=== PATIENT | female | born 1935 | race Caucasian/White ===

== ENCOUNTER 2018-03-01 09:31 | Inpatient (IN) ==
--- NOTE | 2018-03-01 09:20 | Anesthesia Evaluation PreOp ---
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: Other (spinal stenosis) Other Medical History: Denies Any Significant HX Anesthesia History: No Prior Anesthetic Complications, Past Anesthesia Alcohol Use: none Drug use: none Medications and Allergies Gabapentin [Neurontin] 300 mg PO 03/20/15 [History] Metoprolol XL (24 HR) Succ [Toprol XL] 25 mg PO DAILY 03/20/15 [History] Bone Meal-Vitamin D Tablet 01/28/17 [History] Glycerin [Sani-Supp] 1 each RC DAILY #30 supp.rect 01/28/17 [Rx] Meloxicam 01/28/17 [History] Omeprazole 01/28/17 [History] Ondansetron HCl [Zofran] 4 mg PO TID #15 tablet 01/28/17 [Rx] Reclast Premix 5 MG/100 ML 01/28/17 [History] Symbicort 160/4.5 01/28/17 [History] Tramadol HCl [Ultram] 50 mg PO TID PRN #15 tab 01/28/17 [Rx] metroNIDAZOLE [Flagyl] 500 mg PO BID #20 tablet 01/28/17 [Rx] Aspirin Enteric Coated [Aspirin EC] 162 mg PO BID #20 tablet. 03/01/18 [Rx] OxyCODONE Immed Rel [Roxicodone 5 MG] 5 mg PO Q4HR PRN 5 Days #20 tablet [Rx] 3 Allergy/AdvReac Type Severity Reaction Status Date / Time latex Allergy Hives Verified 02/15/18 10:33 - Meds/Allergy Pre-op Review Medications Reviewed: Yes Allergies Reviewed: Yes Beta Blockers on Current Med List: Yes If Beta Blockers taken, Date/Time (Last Dose taken): 03/01/2018 at 0800 Anesthesia Results - Labs Laboratory Tests 02/15/18 02/15/18 02/15/18 10:45 10:45 10:45 WBC 4.8 Hgb 13.8 Hct 40.9 Plt Count 224 PT 10.7 INR 1.0 APTT 32.1 Sodium 138 Potassium 3.8 BUN 22 Creatinine 0.48 L - Imaging EKG: report reviewed (02/15/2018 SINUS RHYTHM POSSIBLE LEFT ATRIAL ENLARGEMENT POSSIBLE LEFT VENTRICULAR HYPERTROPHY POSSIBLE ANTEROSEPTAL MYOCARDIAL INFARCTION, OF INDETERMINATE AGE Left axis deviation) Additional studies: 11/25/2016 Stress Impression: Pharmacologic stress ECG is non diagnostic for ischemia due to baseline non-specific ST and T changes. Gated EF = 64%. Small sized, mild intensity, fixed apical inferior defect suggestive of artifact. Perfusion imaging was negative for ischemia or infarct. Findings: Stress Note * Resting ECG demonstrated normal sinus rhythm, likely LVH, ST-T changes. * No baseline arrhythmias were noted. * Pharmacologic stress ECG is non diagnostic for ischemia due to baseline non-specific ST and T changes. * No arrhythmias were noted during stress. * Patient had no chest pain during stress. * Normal hemodynamic responses to pharmacologic stress. Study Quality * Study quality is average. Gated EF % * Gated EF = 64%. Left Ventricle * The left ventricle is not dilated. LVEDV = 94 mL. * Normal wall motion. Inferior Perfusion Rest * The apical inferior segment shows a mild reduction in perfusion. Inferior Perfusion Stress * The apical inferior segment shows a mild reduction in perfusion. TID * No evidence of transient ischemic dilatation. TID ratio = 1.27. Lung Uptake * There is no evidence of increase lung uptake. Anesthesia Exam O2 Sat Height 1.55 m Height 1.55 m Height 1.55 m Weight 53.524 kg Weight 53.524 kg Weight 53.524 kg O2 Sat by Pulse Oximetry 94 O2 Sat by Pulse Oximetry 94 Vital Signs Temp Pulse Resp BP Pulse Ox 98.3 F 99 18 188/99 94 03/01/18 09:51 03/01/18 09:51 03/01/18 09:51 03/01/18 09:51 03/01/18 09:51 Height: 5'1'' Weight: 118 lbs NPO (# of Hours): 8 Pain Scale: 0 Pain Scale Used: Numeric (1 - 10) - HEENT Pupil (Motor): EOMI Mallampati: II Teeth: Edentulous Denture Type: Upper: Complete, Lower: Complete Oral Opening: Greater than 3 - TYPING ELEMENT MACHINE OPERATOR LOC: Oriented TYPING ELEMENT MACHINE OPERATOR Motor: Normal RUE, Normal LUE, Normal RLE, Normal LLE, Normal Face TYPING ELEMENT MACHINE OPERATOR Sensory: Normal: RUE, LUE, RLE, LLE, Face - Cardiac Rhythm: Regular Murmur: None - Pulmonary Breath Sounds: bilateral Clear Respiratory Effort: Symmetrical Anesthesia Assess/Plan ASA Score: 2 Modified Toney Scale for Level of Consciousness: Cooperative, oriented, and tranquil Anesthetic Plan: General, Regional Monitoring Plan: Standard Monitors Recovery Plan: PACU
[2018-03-01] MEDS ORDERED: ROPIVACAINE HCL/PF 0.5% 30 ML VIAL ONE (09:36)
[2018-03-01] MEDS ORDERED: Bupivacaine/Clonidine Syringe 1 EACH SYRINGE ONE (09:37)
--- NOTE | 2018-03-01 09:42 | History & Physical Report ---
Date of Encounter: 03/01/18 Time of Encounter: 09:42 24 Hour HP Update - Instructions Instructions: If the History and Physical is less than 30 days old and was completed prior to A.M. admission and or procedure and has NOT been updated on calendar day of procedure please complete this update prior to performing procedure. - Update Patient reports changes in Medical Condition: No Changes in examination, assessment, or condition: No Changes in Medication: No Preop tests/diagnostics Reviewed: Yes Surgery Remains Indicated: Yes Consent for Planned Operative Procedure(s) Verified: Yes - Pre-Operative Checklist Preoperative Checklist Indicated: No Prophylactic Antibiotic Ordered: Yes Is VTE Prophylaxis Indicated?: Yes
--- NOTE | 2018-03-01 09:43 | Discharge Summary ---
Date of Encounter: 03/03/18 Time of Encounter: 07:50 - Discharge Diagnosis (1) Arthritis of right knee Priority: Primary Status: Chronic (2) Status post total right knee replacement Priority: Primary Status: Acute - Hospital Course Hospital course: Ms. Mckeon is a 83 year old female Status post total knee replacement received 1 unit of blood for acute blood loss anemiaThe patient had an uneventful postoperative course. They received antibiotics and physical therapy and were discharged in stable condition. There will follow-up in the office in 2 weeks. - Time Spent with Patient Total time spent providing and/or coordinating discharge services: - Discharge Medications Home Medications: Budesonide/Formoterol 160/4.5 [Symbicort 160/4.5] 2 puff IH BID 03/01/18 [ History] Cholecalciferol (D-3) [Vitamin D] 2,000 unit PO DAILY 03/01/18 [History] Cyanocobalamin (Vitamin B-12) [B-12] 1,000 mcg PO MOWEFR 03/01/18 [History] Furosemide [Lasix] 20 mg PO 03/01/18 [History] Gabapentin [Neurontin] 300 mg PO HS 03/01/18 [History] Levothyroxine [Synthroid] 100 mcg PO 0630 03/01/18 [History] Losartan Potassium [Cozaar] 100 mg PO 03/01/18 [History] Meloxicam 7.5 mg PO BID 03/01/18 [History] Metoprolol Succinate [Toprol Xl] 25 mg PO DAILY 03/01/18 [History] Olopatadine HCl [Pataday] 1 drop BOTH EYES DAILY 03/01/18 [History] Allergies/Adverse Reactions: 3 Allergy/AdvReac Type Severity Reaction Status Date / Time latex Allergy Hives Verified 02/15/18 10:33 Primary care physician: Tammie Cole DO - Patient Status Disposition: Transfer Inpatient Rehab Fac Condition: Good Functional capacity at discharge: uses cane/walker Overall status at discharge: patient is progressing back to baseline - Discharge Instructions Follow Up With: Tammie Cole DO [Primary Care Provider] -
[2018-03-01] MEDS ORDERED: *HR* FentaNYL (PF) 100 MCG/2 ML VIAL ONE (09:49)
[2018-03-01] MEDS ORDERED: CeFAZolin Syr 2,000MG/20 ML 2,000 MG/20 ML SYRINGE IVPB ONE (09:51)
[2018-03-01] MEDS ORDERED: Ringers Solution, Lactated 1,000 ML IVC SCH ×2 (10:00→14:26)
[2018-03-01] MEDS ORDERED: Dexamethasone 4 MG/ML VIAL ONE (10:20)
[2018-03-01] MEDS ORDERED: Ondansetron 4 MG/2 ML VIAL ONE (10:20)
[2018-03-01] MEDS ORDERED: Lidocaine -MPF 2% 2 ML VIAL ONE (10:20)
[2018-03-01] MEDS ORDERED: Dexamethasone 4 MG/ML VIAL IVP ONE (10:32)
[2018-03-01] MEDS ORDERED: Ondansetron 4 MG/2 ML VIAL IVP ONE (10:32)
--- NOTE | 2018-03-01 10:56 | Anesthesia Procedures ---
Date of Encounter: 03/01/18 Time of Encounter: 10:45 Procedures: Anesthesia - Nerve Block Procedure Date: 03/01/18 Time: 10:45 Allergies/Adv Reactions: LATEX Pre-op Diagnosis: RIGHT KNEE ARTHROPLASTY Surgical Procedure: RIGHT KNEE ARTHRITIS Checklist: Correct Patient Identifier, Correct procedure, History checked Correct side: Right Blood Thinner: No Monitor Applied: EKG, BP, Pulse Oximetry Supplemental Oxygen via Nasal Cannula (L/min): 2 Sedation: Fentanyl (mcg): 100 Indication: Post Op Analgesia Pre-op Neuro Deficits: No Block Type: Femoral (IPACK ) Catheter placed: No Sterile Technique: Yes Ultrasound used: Yes Anatomy identified: Yes Visual spread of Local: Yes Neuro Stimulation: Yes Nerve Stimulator Range: 0.2 - 0.4 mA Blood on Needle Aspiration: No Smooth Injection of Local: Yes Pain with Injection of Local: No Prep: Chlorhexadine Needle: 21 x 100 mm Stimuplex Local: 0.25% Bupivicaine w/Clonidine 20 mcg/cc (IPACK ), Ropivacaine (8MG DECADRON ) Volume (cc): 60 Number of Attempts: 1 Complications: None/effective block Vitals: Vital Signs - Last 8 Hours Temp Pulse Resp BP Pulse Ox 03/01/18 10:02 98.3 F 99 18 188/99 94 03/01/18 09:51 98.3 F 99 18 188/99 94 Intake and Output 02/28/18 03/01/18 03/01/18 23:59 07:59 15:59 Other: Weight 53.524 kg Patient Weight 03/01/18 23:59 Weight 53.524 kg Comments: PER DR. VEGA REQUEST VSS
[2018-03-01] MEDS ORDERED: Ethanol\\Acetic Acid\\Na Ace\\Ben 1,000 ML IRRIG.SOLN IR ONE (11:27)
[2018-03-01] MEDS ORDERED: *HR* PHENYLEPHRINE 1,000 MCG/10 ML SYRINGE IVP ONE (12:02)
[2018-03-01] MEDS ORDERED: *HR* Morphine 10 MG/ML VIAL ONE (12:16)
--- NOTE | 2018-03-01 13:02 | Physician Discharge Referral ---
<Kyara Chery - Last Filed: 03/01/18 13:11> ExtendedCare Referral Info Transfer To: [facility] Provider in Charge: Dr. Gates - Diagnosis (1) Status post total right knee replacement Priority: Primary Status: Acute (2) Arthritis of right knee Priority: Secondary Status: Chronic (3) Essential (primary) hypertension Priority: Secondary Status: Chronic Expected Duration of Placement: <30 days Prognosis: Good Aware of Diagnosis: Patient Aware of Prognosis: Patient - Transfer Medications Home Medications: Budesonide/Formoterol 160/4.5 [Symbicort 160/4.5] 2 puff IH BID 03/01/18 [ History] Cholecalciferol (D-3) [Vitamin D] 2,000 unit PO DAILY 03/01/18 [History] Cyanocobalamin (Vitamin B-12) [B-12] 1,000 mcg PO MOWEFR 03/01/18 [History] Furosemide [Lasix] 20 mg PO 03/01/18 [History] Gabapentin [Neurontin] 300 mg PO HS 03/01/18 [History] Levothyroxine [Synthroid] 100 mcg PO 0630 03/01/18 [History] Losartan Potassium [Cozaar] 100 mg PO 03/01/18 [History] Meloxicam 7.5 mg PO BID 03/01/18 [History] Metoprolol Succinate [Toprol Xl] 25 mg PO DAILY 03/01/18 [History] Olopatadine HCl [Pataday] 1 drop BOTH EYES DAILY 03/01/18 [History] Allergies/Adverse Reactions: 3 Allergy/AdvReac Type Severity Reaction Status Date / Time latex Allergy Hives Verified 02/15/18 10:33 - Respiratory Orders Smoking Cessation: Smoking cessation has been advised. For more information, call the [place] Tobacco Quit Line at 3-901-IPTS-NOW. - Ancillary Orders May use pressure relief devices daily prn, May go on LINDY w/family/respon alliance party w /meds at nurse discretion PRN, May consult with Dentist, Robotics Testing Technician, Freelance Court Reporter PRN - Mobility Orders Chair, Ambulate - Rehabiliation Orders Rehab Potential: Good Rehab Orders: Evaluation for Physical Therapy, Evaluation for Occupational Therapy - Treatments Skin tear care topically daily PRN per policy List/Other: Opsite dressing, leave intact until first post-operative visit. If dressing becomes >50% saturated, contact office, remove dressing and place appropriate dressing in its place. Do not allow for dressing to get wet. Zipline/[place] in place, plan to remove at post-operative day #14-16. Total Joint Precautions x 6 weeks Apply cold therapy wrap 3-6x/day for 20 minutes at a time. Encourage ambulation throughout the day Use Incentive spirometer 10x/hour. Elevate affected extremity above heart as tolerated. Brace: Wear knee immobilizer at night x 2 weeks.~ - Diet Orders Regular CERTIFICATION: I certify that the transfer of the above named patient to an Extended Care Facility is necessary for the continuing treatment of the diagnosis listed. The above information is true and accurate reflection of patient's current condition. Confidential - Redisclosure prohibited without a patient's written consent. <Lino Gates - Last Filed: 03/02/18 06:42> - Diagnosis (1) Arthritis of right knee Status: Chronic (2) Status post total right knee replacement Status: Acute - Respiratory Orders Smoking Cessation: Smoking cessation has been advised. For more information, call the [place] Tobacco Quit Line at 9-270-GPDL-NOW. CERTIFICATION: I certify that the transfer of the above named patient to an Extended Care Facility is necessary for the continuing treatment of the diagnosis listed. The above information is true and accurate reflection of patient's current condition. Confidential - Redisclosure prohibited without a patient's written consent.
--- NOTE | 2018-03-01 13:03 | Orthopedic Operative Note ---
Date of procedure: 03/01/18 Pre-op diagnosis: Right knee arthritis Post-op diagnosis: same Procedure: Procedure: Right robotic-assisted Total knee replacement Estimated blood loss: 500 cc Hardware: Metal and polyethylene replacement. [place] Femur: 3 Tibia: 3 TS insert: 9 Patella: 36 Exam Under anesthesia: 7 degrees hyperextension 4 degree valgus as calculated by the robot full flexion and no instability Procedural Notes: Grade 4 arthritic changes all 3 compartments. Operative procedure: The patient was brought to the operating room and placed on the operating room table. After general anesthesia was administered the operative knee was examined. Findings were noted in the exam under anesthesia. The operative extremity was prepped and draped in sterile surgical fashion. The patient received IV antibiotics prior to skin incision. A standard midline incision was made centered over the patella. The incision was made through the skin and subcutaneous tissue. A medial parapatellar tendon approach was performed. Care was taken to preserve tissue along the medial aspect of the patella. And to protect the patella tendon. The deep MCL was released off the medial tibia. The infra patella fat pad was excised. The patella was everted and cut was made at the level of the insertion of the quadriceps and patella tendon. The patella was sized to a 36 the guide was seated and the lug holes are drilled. Knee was brought into flexion. Patient noted to have grade 4 arthritic changes all 3 compartments. Steinmann pins were placed in the tibia and the femur for the tibial and femoral arrays respectively. Checkpoints were also placed in the tibia and the femur for calculation purposes. The knee including the femur and the tibial registered. Osteophytes, ACL and PCL were excised at this point. Extension and flexion were assessed with a valgus stress components were adjusted on the computer to balance the knee. Femoral cuts were made first with robotic assistance, these included the anterior cut posterior cuts chamfer cuts. Tibial cut was then performed with robotic assistance as well. Bone fragments were removed, as well as the medial and lateral meniscus. The size 3 femoral guide was seated box cut was made lug holes are drilled. The size 3 tibial tray was seated and prepared with the fin cutter. Trial reduction with the 9 TS Aleta revealed extension of 0 degree and 0 degrees varus valgus full flexion. No varus valgus instability. Trial reduction revealed excellent patella tracking. All trial components were removed all bony surfaces were irrigated. The Tibia was seated followed by the femur, The Aleta size 9 was seated and secured patella. Patient had similar findings for motion and stability. The knee was then irrigated out with 2 L of pulse irrigation. The extensor mechanism was closed with #2 FiberWire suture and #2 PDS suture. The subcutaneous tissue was then irrigated and closed deep with #1 PDS suture superficially with 0 PDS suture and skin was closed with skin marcell and zip tie The patient was then placed in a sterile dressing and a postoperative brace extubated and transferred to recovery room in stable condition. Anesthesia: GETA Surgeon: Lino Gates Was there an personal care assistant present: No Estimated blood loss (cc): 500 Condition: stable Disposition: PACU
[2018-03-01] MEDS: *HR* Morphine 2 MG/ML SYRINGE IVP PRN ×3 (13:19→13:48)
[2018-03-01] MEDS: *HR* Labetalol 20 MG/4 ML SYRINGE IVP PRN ×2 (13:20→13:47)
--- NOTE | 2018-03-01 14:05 | Anesthesia Evaluation Post Op ---
Date of Encounter: 03/01/18 Time of Encounter: 14:05 - Vital Signs Vital Signs: Selected Entries 03/01/18 13:42 03/01/18 13:52 Temperature 97.4 F L Pulse Rate 69 Respiratory Rate 16 Blood Pressure 149/74 O2 Sat by Pulse Oximetry 95 - Lungs Lungs: Clear Ascult./Percussion - Airway Airway: Non-obstructed - Cardiovascular Regular Rate - Nausea Vomiting Nausea Vomiting: Not Present - Hydration Hydration: Tolerates oral liquids - Discharge PostOp Status: Transfer Patient to floor
[2018-03-01 14:22] LABS: Hematocrit 35.6 % (35.3-44.9)
[2018-03-01] MEDS ORDERED: Sennosides 8.6 MG TABLET PO PRN (14:26)
[2018-03-01] MEDS ORDERED: traMADol 50 MG TABLET PO PRN (14:26)
[2018-03-01] MEDS ORDERED: Ondansetron 4 MG/2 ML VIAL IVP PRN (14:26)
[2018-03-01] MEDS ORDERED: Temazepam 15 MG CAPSULE PO PRN (14:26)
[2018-03-01] MEDS ORDERED: MOM Conc 10 ML UD.LIQ PO PRN (14:26)
[2018-03-01] MEDS ORDERED: Naloxone 0.4 MG/ML INJ IVP PRN (14:26)
[2018-03-01] MEDS: *HR* OxyCODONE Immed Rel 5 MG TABLET PO PRN (15:10)
[2018-03-01] MEDS: *HR* OxyCODONE/APAP 5/325 TABLET PO PRN (18:05)
[2018-03-01] MEDS ORDERED: Aspirin Enteric Coated 81 MG Tablet PO SCH (18:44)
[2018-03-01] MEDS: Gabapentin 300 MG CAPSULE PO SCH (19:59)
[2018-03-01] MEDS: Budesonide/Formoterol 160/4.5 MDI IH SCH (20:47)
[2018-03-02 01:50] LABS: Hematocrit 27.2 % (35.3-44.9)
[2018-03-02 02:11] LABS: BUN/Creatinine Ratio 54 (6-26); Blood Urea Nitrogen 27 mg/dL (8-23); Calcium 8.5 mg/dL (8.6-10.3); Carbon Dioxide 30 mEq/L (23-29); Chloride 98 mEq/L (98-107); Glucose 157 mg/dL (70-105); Osmolality,Calculated 284 (280-300); Potassium 4.6 mEq/L (3.5-5.1); Sodium 133 mEq/L (136-145); eGFR For Non-African Americans > 60 (> 60)
--- NOTE | 2018-03-02 06:43 | Orthopedics Progress Note ---
Date of Encounter: 03/02/18 Time of Encounter: 06:42 - Assessment and Plan (1) Arthritis of right knee Current Visit: Yes Status: Chronic (2) Status post total right knee replacement Current Visit: Yes Status: Acute (3) Acute blood loss anemia Current Visit: Yes Status: Acute (4) Essential (primary) hypertension Current Visit: Yes Status: Chronic Subjective Interval history: Patient was seen this morning doing well without complaints. Afebrile vital signs stable. Operative extremity: Neurovascularly intact Dressing clean dry and intact Calves nontender Assessment and plan: Continue with postoperative care Hematocrit 27 awaiting placement for discharge Objective Vital signs: Vital Signs Temp Pulse Resp BP Pulse Ox 03/02/18 04:04 98.6 F 54 14 124/65 95 03/01/18 23:39 97.4 F L 51 14 120/52 96 03/01/18 20:47 16 94 03/01/18 20:44 97.7 F 54 15 121/54 98 03/01/18 19:35 97.5 F L 49 14 135/63 97 03/01/18 19:33 97.5 F L 58 16 124/60 95 03/01/18 18:00 54 16 104/52 95 03/01/18 17:00 50 16 112/61 97 03/01/18 16:14 97.8 F 53 16 92/54 94 03/01/18 15:35 56 16 125/66 92 03/01/18 15:12 75 16 125/66 93 03/01/18 15:03 93 03/01/18 14:48 95 03/01/18 14:35 97.7 F 78 16 136/77 92 03/01/18 14:02 59 12 153/79 94 03/01/18 13:52 69 16 149/74 95 03/01/18 13:42 97.4 F L 63 16 172/92 93 03/01/18 13:32 72 18 165/95 93 03/01/18 13:22 82 16 157/83 96 03/01/18 13:12 98 F 90 16 185/104 96 03/01/18 10:02 98.3 F 99 18 188/99 94 03/01/18 09:51 98.3 F 99 18 188/99 94 Intake and Output 08/16/18 08/16/18 08/17/18 15:59 23:59 07:59 Intake Total 20 / 20 440 / 440 50 / 50 Output Total 500 / 500 550 / 550 Balance -480 / -480 -110 / -110 50 / 50 Intake: IV Fluids 20 / 20 100 / 100 Ancef Syringe 2,000 MG/20 ML 2, 20 / 20 000 mg In 20 ml @ 200 mls/hr IVPB PREOP ONE Rx#:[id number] Ancef 2,000 MG In 0.9 % Sodium 100 / 100 Chloride 100 ML @ 200 mls/hr IVPB Q8H [facility] Rx#:[id number] Oral 340 / 340 50 / 50 Output: Urine 550 / 550 Estimated Blood Loss 500 / 500 Other: Meal Dinner # Voids 1 1 Weight 53.524 kg - Labs CBC & BMP: 03/02/18 01:06 03/02/18 01:06 Labs: Abnormal lab results Hgb 9.0 g/dL (11.5-15.4) L D 03/02/18 01:06 Hct 27.2 % (35.3-44.9) L 03/02/18 01:06 Sodium 133 mEq/L (136-145) L 03/02/18 01:06 Carbon Dioxide 30 mEq/L (23-29) H 03/02/18 01:06 BUN 27 mg/dL (8-23) H 03/02/18 01:06 Creatinine 0.50 mg/dL (0.60-1.20) L 03/02/18 01:06 BUN/Creatinine Ratio 54 (6-26) H 03/02/18 01:06 Glucose 157 mg/dL (70-105) H 03/02/18 01:06 Calcium 8.5 mg/dL (8.6-10.3) L 03/02/18 01:06 - VTE Documentation of Mechanical Device: Venous foot pump, device Consult Discharge Plan - Plan Referrals: Tammie Cole DO [Primary Care Provider] -
[2018-03-02] MEDS: Budesonide/Formoterol 160/4.5 MDI IH SCH ×2 (08:01→21:51)
[2018-03-02] MEDS: Metoprolol XL (24 HR) Succ 25 MG TAB.ER.24H PO SCH (08:52)
[2018-03-02] MEDS: Aspirin Enteric Coated 81 MG Tablet PO SCH (08:52)
[2018-03-02] MEDS: Cholecalciferol (D-3) 1,000 UNIT TABLET PO SCH (08:52)
[2018-03-02] MEDS: (Olopatadine Hcl [Pataday] 1 DROP) OP SCH (09:18)
[2018-03-02] MEDS ORDERED: Cyanocobalamin (B-12) 1,000 MCG TABLET PO SCH (11:39)
--- NOTE | 2018-03-02 13:33 | Event Note ---
Date of Encounter: 03/02/18 Time of Encounter: 12:20 PCR - POD#1 s/p Right robotic-assisted Total knee replacement 03/01/18 Patient seen at bedside, without complaints. A&O x 3 Afebrile, vital signs stable. Labs reviewed. H/H (9.0/27.2) - stable, asymptomatic Pain control: adequate Participating in PT. All questions and concerns addressed. Educated on use of incentive spirometer. Encouraged ambulation and proper hydration. Patient educated on post-operative restrictions and post-operative care. Assessment and plan: Continue with postoperative care. Nursing did note crackles to right lower lobe today. CXR showed opacity to this area with possible pneumonia. Consult placed to hospitalist for further evaluation. She currently has no c/o SOB, O2sat 95% and she is stable and comfortable. She is not on any oxygen at home. Discharge plan: [facility] - [facility] in [place] pending placement
--- NOTE | 2018-03-02 14:28 | Internal Medicine Consult Note ---
<Nel Bright L - Last Filed: 03/02/18 16:45> Date of Encounter: 03/02/18 Time of Encounter: 14:26 - Assessment and plan (1) Pneumonia Current Visit: Yes Status: Suspected Assessment and plan: - crackles heard in right lower lung base and CXR shows opacification in same area with a possible pneumonia noted - patient was intubated for knee arthroplasty yesterday and crackles were noted on exam this morning - prior to surgery respiratory exam was CTA b/l - patient was NPO for 8 hours prior to surgery - Will order CBC to check for WBC count, as well as strep and legionella urine antigens and blood and sputum cultures - recommend beginning rocephin and azithromycin empirically prior to test results (2) Status post total right knee replacement Current Visit: Yes Status: Acute Assessment and plan: management as per orthopedic team - Time Spent With Patient Total time spent is greater than 50% in coordination of care (as documented) at patient's floor/unit and/or counseling patient: Internal Medicine - CN: HPI - Data of Consult Consult date: 03/02/18 Requesting Physician: Lino Gates MD - Consult Narrative Reason for consult: Evaluation for possible PNA History of present illness: Ms. Mckeon is a 83 year old female who presents with mild crackles in the right lung base. She underwent a right total knee arthroplasty 03/01 with no surgery complications noted. Nursing noted coarse crackles in the posterior right lower lobe in the morning of 03/02. A CXR was completed and noted right lower lobe opacification with increased interstitial markings diffusely, indicative of a possible PNA. Patient was NPO for 8 hours prior to surgery and pre-surgery exam she was CTA b/l. Patient denies any current SOB, coughing, sputum production, angina, dyspnea, dysphagia, hemoptysis, vomiting or diarrhea , or hematuria. She admits to a slight cough and shortness of breath on exertion 2-3 days prior to admission for the knee surgery. She says she brought up some yellow tinged sputum 2 days before the surgery, which she says was the same as the last time she was diagnosed with bronchitis, but says she has not brought up anything since being in the hospital. She denies any dyspnea, difficulty swallowing, or angina prior to surgery. She is currently afebrile, in no pain and has no acute complaints. Past Med Surg Social Fam HX - Past Medical History Medical history: arthritis, asthma, diabetes, hypertension, osteoporosis, thyroid disease Additional medical history: Osteopenia. Spinal stenosis. DEXA-2011 & 2013. bilateral mastectomy d/t fibroid tumors and needing them drained so frequently. Vit D def. Cyst of left kidney. renal cyst. pre-diabetic. Actinic keratosis. Dermatophyosis of nail. Scoliosis of lumbar spine. Colon adenoma. diverticulosis of colon. Hyperparathyroidism. hypothyroidism. Osteoarthritis. Ostreporosis. lumbarspinal stenosis. lichen simplex chronicus. Redd's cyst of knee. Degenerative arthritis. scoliosis. lower left extremity pain. colon polyps. soliz esophagus Psychiatric history: no psych history - Past Surgical History Surgical History: hip replacement, hysterectomy, orthopedic, other (left should arthroplasty), thyroidectomy Additional surgical history: bilateral mastectomy - Social History Smoking Status: Never smoker Smokeless Tobacco Status: No Alcohol use: none Drug use: none - Constitutional Constitutional: as per HPI - EENT Nose, mouth and throat: no dysphagia, no hoarseness, no sore throat - Cardiovascular Cardiovascular ROS IM: no chest pain, no dyspnea - Respiratory Respiratory: as per HPI Additional comments: 1 incidence of yellow sputum production 2 days prior to surgery - Gastrointestinal Gastrointestinal: as per HPI - Genitourinary Genitourinary: as per HPI Internal Medicine - CN: Meds Budesonide/Formoterol 160/4.5 [Symbicort 160/4.5] 2 puff IH BID 03/01/18 [ History] Cholecalciferol (D-3) [Vitamin D] 2,000 unit PO DAILY 03/01/18 [History] Cyanocobalamin (Vitamin B-12) [B-12] 1,000 mcg PO MOWEFR 03/01/18 [History] Furosemide [Lasix] 20 mg PO 03/01/18 [History] Gabapentin [Neurontin] 300 mg PO HS 03/01/18 [History] Levothyroxine [Synthroid] 100 mcg PO 0630 03/01/18 [History] Losartan Potassium [Cozaar] 100 mg PO 03/01/18 [History] Meloxicam 7.5 mg PO BID 03/01/18 [History] Metoprolol Succinate [Toprol Xl] 25 mg PO DAILY 03/01/18 [History] Olopatadine HCl [Pataday] 1 drop BOTH EYES DAILY 03/01/18 [History] 3 Allergy/AdvReac Type Severity Reaction Status Date / Time latex Allergy Hives Verified 02/15/18 10:33 Internal Medicine - CN: Exam - Constitutional Vitals: Temp Pulse Resp BP Pulse Ox 98.5 F 74 16 126/58 95 03/02/18 09:45 03/02/18 09:45 03/02/18 09:45 03/02/18 09:45 03/02/18 09:45 General appearance IM: Present: A&O X 3, pleasant, no acute distress, answers questions appropriately - ENT ENT exam: Present: mucous membranes moist, normal oropharynx - Respiratory Respiratory exam: Absent: chest wall tenderness, wheezes Additional comments: mild crackles in right lower lung base - Cardiovascular Cardiovascular exam IM: Present: RRR, +S1, +S2. Absent: JVD - GI/Abdominal GI/Abdominal exam IM: Present: soft. Absent: guarding, tenderness - Extremities Exam Extremities exam IM: Present: radial pulses palpable and symmetrical. Absent: calf tenderness - Expanded Upper Extremities Exam Shoulder exam: Present: crepitus (right shoulder crepitus) Internal Medicine - CN: Reslt - Labs CBC & Chem 7: 03/02/18 01:06 03/02/18 01:06 Labs: Short CBC 03/02/18 Range/Units 01:06 Hgb 9.0 L D (11.5-15.4) g/dL Hct 27.2 L (35.3-44.9) % BMP 03/02/18 01:06 Sodium 133 L Potassium 4.6 Chloride 98 Carbon Dioxide 30 H BUN 27 H Creatinine 0.50 L Glucose 157 H Calcium 8.5 L - Impressions Impressions Knee X-Ray 03/01/18 09:44 IMPRESSION: Total knee arthropasty without acute hardware complication. D/ / William Sue MD / William Sue MD Interpreting Provider: Wliliam Sue MD Chest X-Ray 03/02/18 10:50 IMPRESSION: Right lower lobe opacification could represent pneumonia. Otherwise, stable chest D/ / William Sue MD / William Sue MD Interpreting Provider: William Sue MD Consult Discharge Plan - Plan Referrals: Tammie Cole DO [Primary Care Provider] - <Marcin Smyth - Last Filed: 03/02/18 17:44> Date of Encounter: 03/02/18 - Assessment and plan (1) Pneumonia Current Visit: Yes Status: Suspected Qualifiers: Pneumonia type: due to Pneumococcus Laterality: right Lung location: lower lobe of lung Qualified Code(s): J13 - Pneumonia due to Streptococcus pneumoniae (2) Essential (primary) hypertension Current Visit: Yes Status: Chronic (3) Status post total right knee replacement Current Visit: Yes Status: Acute - Time Spent With Patient Total time spent is greater than 50% in coordination of care (as documented) at patient's floor/unit and/or counseling patient: Internal Medicine - CN: HPI - Data of Consult Patient: new to practice Requesting Physician: Lino Gates MD - Consult Narrative History of present illness: Ms. Mckeon is a 83 year old female Past Med Surg Social Fam HX - Past Medical History Source: patient, old records reviewed - Family History Mother Living Status: Hx Family Cardiac Disorders: Yes All systems: reviewed and no additional remarkable complaints except as stated - EENT Eyes: no dry eye, no loss of vision Ears: decreased hearing - Cardiovascular Cardiovascular ROS IM: no palpitations - Gastrointestinal Gastrointestinal: no bloating, no melena - Genitourinary Genitourinary: no dysuria, no nocturia - Musculoskeletal Musculoskeletal ROS IM: as per HPI - Integumentary Integumentary IM: no erythema, no rash - Neurological Neurological ROS: no focal weakness, no numbness, no vertigo - Endocrine Endocrine IM: no excessive sweating, no fatigue - Hematologic/Lymphatic Hematologic/Lymphatic: no easy bleeding - Allergic/Immunologic Allergic/Immunologic: no throat swelling, no wheezing Internal Medicine - CN: Exam - Constitutional Vitals: Temp Pulse Resp BP Pulse Ox 98.7 F 65 14 168/58 95 03/02/18 16:20 03/02/18 16:20 03/02/18 16:20 03/02/18 16:20 03/02/18 16:20 - Head Head exam: Present: atraumatic, normocephalic - Eye Eye exam: Present: EOMI, conjuntiva pink - Expanded ENT Exam Mouth exam: Present: moist Throat exam: Absent: tonsillar erythema - Neck Neck exam general surgery: Absent: lymphadenopathy, thyromegaly - Expanded Neck Exam Neck exam: Absent: carotid bruit - GI/Abdominal GI/Abdominal exam IM: Present: normal bowel sounds. Absent: mass - Neurological Exam Neurological exam: Present: alert, oriented X3, no focal deficits - Skin Skin exam IM: Present: dry, warm. Absent: rash Internal Medicine - CN: Reslt - Labs CBC & Chem 7: 03/02/18 01:06 03/02/18 01:06 Labs: Short CBC 03/02/18 Range/Units 01:06 Hgb 9.0 L D (11.5-15.4) g/dL Hct 27.2 L (35.3-44.9) % BMP 03/02/18 01:06 Sodium 133 L Potassium 4.6 Chloride 98 Carbon Dioxide 30 H BUN 27 H Creatinine 0.50 L Glucose 157 H Calcium 8.5 L - Impressions Impressions Chest X-Ray 03/02/18 10:50 IMPRESSION: Right lower lobe opacification could represent pneumonia. Otherwise, stable chest D/ / William Sue MD / William Sue MD Interpreting Provider: William Sue MD - Attending Attestation The history, physical exam, and medical decision making was performed by the medical student either while I was physically present and actively involved or I personally re-performed the exam and medical decision making. I have verified the accuracy of the medical student's documentation with regards to the history, physical exam findings, and medical decision making on 03/02/18. Ms Mckeon is currently admitted for R TKA. We have been consulted due to concern for pneumonia. Ms Ruvalcabaen some coughing prior to coming to hospital. No fever or chills. No dyspnea. No diarrhea or GI issues. Today she was noted to have rales and CXR shows opacification in R base. Exam alert Comfortable Mucus membranes dry Heart not tachy Faint rales R base Abd soft I/P 1. PNA - abx started 2. R TKA Further diagnoses and plan as above.
[2018-03-02] MEDS ORDERED: Azithromycin 500 MG in D5% in Water 250 ML IVPB SCH (15:00)
[2018-03-02] MEDS ORDERED: cefTRIAXone 1,000 MG in Water for inj. (sterile) 20 ML 10 ML IVP SCH (15:00)
[2018-03-02] MEDS: *HR* OxyCODONE Immed Rel 5 MG TABLET PO PRN (16:27)
[2018-03-02] MEDS: Gabapentin 300 MG CAPSULE PO SCH (20:06)
[2018-03-03 01:26] LABS: Basophils # 0.1 K/mcL (0.0-0.2); Basophils % 0.7 %; Eosinophils # 0.1 K/mcL (0.0-0.6); Eosinophils % 1.7 %; Hematocrit 25.1 % (35.3-44.9); Hemoglobin 8.4 g/dL (11.5-15.4); Immature Granulocytes % 0.4 % (0-4); Lymphocytes # 0.6 K/mcL (0.6-4.6); Lymphocytes % 8.1 %; Mean Corpuscular HGB Conc 33.5 g/dL (31.6-35.5); Mean Corpuscular Hemoglobin 31.6 pg (28.0-33.3); Mean Corpuscular Volume 94.4 fL (83.0-100.0); Mean Platelet Volume 11.3 fL (9.4-12.4); Monocytes # 1.3 K/mcL (0.0-1.3); Monocytes % 16.8 %; Neutrophils # 5.4 K/mcL (1.6-8.9); Platelet Count 178 K/mcL (140-400); Red Blood Count 2.66 M/mcL (3.82-4.97); Segmented Neutrophils % 72.3 %
[2018-03-03 01:43] LABS: BUN/Creatinine Ratio 44 (6-26); Blood Urea Nitrogen 27 mg/dL (8-23); Calcium 8.8 mg/dL (8.6-10.3); Carbon Dioxide 32 mEq/L (23-29); Chloride 99 mEq/L (98-107); Glucose 134 mg/dL (70-105); Osmolality,Calculated 283 (280-300); Potassium 4.6 mEq/L (3.5-5.1); Sodium 133 mEq/L (136-145); eGFR For Non-African Americans > 60 (> 60)
--- NOTE | 2018-03-03 07:50 | Orthopedics Progress Note ---
Date of Encounter: 03/03/18 Time of Encounter: 07:50 - Assessment and Plan (1) Arthritis of right knee Current Visit: Yes Status: Chronic (2) Status post total right knee replacement Current Visit: Yes Status: Acute (3) Acute blood loss anemia Current Visit: Yes Status: Acute (4) Essential (primary) hypertension Current Visit: Yes Status: Chronic Subjective Interval history: Patient was seen this morning doing well without complaints. Afebrile vital signs stable. Operative extremity: Neurovascularly intact Dressing clean dry and intact Calves nontender Assessment and plan: Continue with postoperative care Hematocrit 25 1 unit packed red blood cells awaiting placement for discharge Objective Vital signs: Vital Signs Temp Pulse Resp BP Pulse Ox 03/03/18 07:03 98.9 F 82 16 160/75 98 03/03/18 03:29 98.8 F 76 16 156/70 90 03/02/18 23:16 97.9 F 74 14 134/67 14 03/02/18 21:51 16 93 03/02/18 20:10 93 03/02/18 18:34 98.8 F 86 14 113/53 93 03/02/18 16:20 98.7 F 65 14 168/58 95 03/02/18 09:45 98.5 F 74 16 126/58 95 03/02/18 08:01 16 97 Intake and Output 03/02/18 03/02/18 03/03/18 15:59 23:59 07:59 Intake Total 350 / 350 800 / 800 Output Total 750 / 750 500 / 500 1700 / 1700 Balance -400 / -400 -500 / -500 -900 / -900 Intake: Oral 350 / 350 800 / 800 Output: Urine 750 / 750 500 / 500 1700 / 1700 Other: Meal Lunch Percent of Meal Consumed 25% Weight 61.4 kg - Labs CBC & BMP: 03/03/18 00:53 03/03/18 00:53 Labs: Abnormal lab results RBC 2.66 M/mcL (3.82-4.97) L 03/03/18 00:53 Hgb 8.4 g/dL (11.5-15.4) L 03/03/18 00:53 Hct 25.1 % (35.3-44.9) L 03/03/18 00:53 Sodium 133 mEq/L (136-145) L 03/03/18 00:53 Carbon Dioxide 32 mEq/L (23-29) H 03/03/18 00:53 BUN 27 mg/dL (8-23) H 03/03/18 00:53 BUN/Creatinine Ratio 44 (6-26) H 03/03/18 00:53 Glucose 134 mg/dL (70-105) H 03/03/18 00:53 - VTE Documentation of Mechanical Device: Venous foot pump, device Consult Discharge Plan - Plan Referrals: Tammie Cole DO [Primary Care Provider] -
[2018-03-03] MEDS ORDERED: Furosemide 20 MG/2 ML VIAL IVP ONE ×2 (07:51→17:36)
[2018-03-03] MEDS ORDERED: 0.9 % Sodium Chloride 250 ML IVC SCH (08:00)
--- NOTE | 2018-03-03 08:54 | Internal Med Progress Note ---
<Margy Cardoso P - Last Filed: 03/03/18 08:39> Date of Encounter: 03/03/18 Time of Encounter: 08:30 - Assessment and plan (1) Pneumonia Current Visit: Yes Status: Suspected Assessment and plan: She has opacitiies suggestive of Pneumonia in right lobe of lung Post surgical status : post TKR on 03/01 She is on Azithomycin and Ceftriaxone X day 2 Improving symptomatically , no cough , pain and SOB Qualifiers: Pneumonia type: due to Pneumococcus Laterality: right Lung location: lower lobe of lung Qualified Code(s): J13 - Pneumonia due to Streptococcus pneumoniae (2) Acute blood loss anemia Current Visit: Yes Status: Acute Assessment and plan: She is post TKR patient Post Op Hb 8.4 We are monitoring her Hb closely Blood has been ordered and made ready. Planned to transfuse pack cell if Hb drops below 7. (3) Status post total right knee replacement Current Visit: Yes Status: Acute Assessment and plan: This is case of Chronic Osteoarthritis Arthritis right knee Total Knee replacement done on 03/01 Getting better after surgery, no fresh complaints and no wound site infection - Subjective Interval history: She is 83 year old female who had Right knee surgery ( TKR ) last ( ) reported to us for mild crackles in the base of right lung and post surgery X-ray finding suggestive of Pneumonia She underwent a right total knee arthroplasty 03/01 post op report was uneventful. Her pre surgery evaluation was normal . Patient denies any current SOB, coughing, sputum production, angina, dyspnea, dysphagia, hemoptysis, vomiting or diarrhea, or hematuria. She had slight cough and shortness of breath on exertion 2-3 days prior to admission for the knee surgery. She says she brought up some yellow tinged sputum 2 days before the surgery,but says she denies any cough after she was admitted in the hospital. She denies any dyspnea, difficulty swallowing, or angina prior to surgery. She is feeling better Today. Her vitals are stable: 160/75, 98% , pulse 82. Her recent Hb 8.4 and hematocrit 25.1, CBC 7.5, BUN 27, Creatinine 0.61, Na+ 133 ,K+4.6 .She is on Ceftriaxone and Azhitromycin X day 2. Symptomatically better . We have ordered PRBC and made ready if Hb drops less than 7 . - Constitutional Vitals: Temp Pulse Resp BP Pulse Ox 98.9 F 82 16 160/75 98 03/03/18 07:03 03/03/18 07:03 03/03/18 07:03 03/03/18 07:03 03/03/18 07:03 General appearance: Present: mild distress, A&O X 3, pleasant, no acute distress , answers questions appropriately - Head Head exam: Present: atraumatic, normal inspection, normocephalic - Neck Neck exam general surgery: Present: full ROM, supple - Respiratory Additional comments: Air entry equal both side, slightly diminished air entry in right lower zone , creps noted both side lower zone right> left, no wheezes - Cardiovascular Additional comments: Normal rate and rhythm, no murmur , no added sound - GI/Abdominal Additional comments: Soft, warm,no organomegaly, no rigidity and guarding - Extremities Exam Additional comments: Mild pedal edema both legs. Post surgical status in Right knee ( post TKR) , no wound site infection. - Psychiatric Psychiatric exam: Present: normal affect Internal Medicine: Result - Labs CBC & Chem 7: 03/03/18 00:53 03/03/18 00:53 Labs: Short CBC 03/03/18 Range/Units 00:53 WBC 7.5 (4.3-11.1) K/mcL Hgb 8.4 L (11.5-15.4) g/dL Hct 25.1 L (35.3-44.9) % Plt Count 178 (140-400) K/mcL Neutrophils # 5.4 (1.6-8.9) K/mcL BMP 03/03/18 00:53 Sodium 133 L Potassium 4.6 Chloride 99 Carbon Dioxide 32 H BUN 27 H Creatinine 0.61 Glucose 134 H Calcium 8.8 - Impressions Impressions Chest X-Ray 03/02/18 10:50 IMPRESSION: Right lower lobe opacification could represent pneumonia. Otherwise, stable chest D/ / William Sue MD / William Sue MD Interpreting Provider: William Sue MD - VTE Documentation of Mechanical Device: Venous foot pump, device Consult Discharge Plan - Plan Referrals: Tammie Cole DO [Primary Care Provider] - Prescriptions: Levofloxacin [Levaquin] 500 mg PO DAILY #5 tablet <Marcin Smyth - Last Filed: 03/03/18 09:28> Date of Encounter: 03/03/18 - Assessment and plan (1) Pneumonia Current Visit: Yes Status: Suspected Qualifiers: Pneumonia type: due to Pneumococcus Laterality: right Lung location: lower lobe of lung Qualified Code(s): J13 - Pneumonia due to Streptococcus pneumoniae (2) Essential (primary) hypertension Current Visit: Yes Status: Chronic (3) Status post total right knee replacement Current Visit: Yes Status: Acute - Constitutional Vitals: Temp Pulse Resp BP Pulse Ox 98.9 F 82 16 160/75 98 03/03/18 07:03 03/03/18 07:03 03/03/18 07:03 03/03/18 07:03 03/03/18 07:03 Internal Medicine: Result - Labs CBC & Chem 7: 03/03/18 00:53 03/03/18 00:53 Labs: Short CBC 03/03/18 Range/Units 00:53 WBC 7.5 (4.3-11.1) K/mcL Hgb 8.4 L (11.5-15.4) g/dL Hct 25.1 L (35.3-44.9) % Plt Count 178 (140-400) K/mcL Neutrophils # 5.4 (1.6-8.9) K/mcL BMP 03/03/18 00:53 Sodium 133 L Potassium 4.6 Chloride 99 Carbon Dioxide 32 H BUN 27 H Creatinine 0.61 Glucose 134 H Calcium 8.8 - Impressions Impressions Chest X-Ray 03/02/18 10:50 IMPRESSION: Right lower lobe opacification could represent pneumonia. Otherwise, stable chest D/ / William Sue MD / William Sue MD Interpreting Provider: William Sue MD - Attending Attestation I examined this patient and my medical decision-making was reviewed with the Resident Physician on 03/03/18. I agree with the documented findings, disposition and treatment plan as described except to the extent set forth below. Ms Mckeon has been admitted for acute R TKA. We have been consulted for pneumonia. Ms Mckeon is resting comfortably. No fever or chills. Oxygenation good on RA. WBC normal. No GI issues. No cough or dyspnea. Exam alert and comfortable Mucus membranes dry Heart reg with S4 and ? diastolic murmur Lungs clear at this time Abd soft I/P 1. PNA 2. HTN OK to discharge to SNF today. Complete course of PO abx (put in med rec). Thank you very much for the consult.
[2018-03-03] MEDS ORDERED: levoFLOXacin 500 MG TABLET PO ONE (09:24)
[2018-03-03] MEDS: Cholecalciferol (D-3) 1,000 UNIT TABLET PO SCH (09:36)
[2018-03-03] MEDS: Aspirin Enteric Coated 81 MG Tablet PO SCH (09:37)
[2018-03-03] MEDS: Metoprolol XL (24 HR) Succ 25 MG TAB.ER.24H PO SCH (09:37)
[2018-03-03] MEDS: (Olopatadine Hcl [Pataday] 1 DROP) OP SCH (09:37)
[2018-03-03] MEDS: Budesonide/Formoterol 160/4.5 MDI IH SCH ×2 (10:31→22:46)
[2018-03-03] MEDS ORDERED: *HR* Metoprolol 5 MG/5 ML VIAL IVP PRN (17:33)
[2018-03-03] MEDS: Gabapentin 300 MG CAPSULE PO SCH (19:57)
[2018-03-04] MEDS: *HR* OxyCODONE/APAP 5/325 TABLET PO PRN (04:53)
[2018-03-04] MEDS: Budesonide/Formoterol 160/4.5 MDI IH SCH (07:49)
[2018-03-04] MEDS: (Olopatadine Hcl [Pataday] 1 DROP) OP SCH (09:00)
[2018-03-04] MEDS: Cholecalciferol (D-3) 1,000 UNIT TABLET PO SCH (09:01)
[2018-03-04] MEDS: Aspirin Enteric Coated 81 MG Tablet PO SCH (09:01)
[2018-03-04] MEDS: Metoprolol XL (24 HR) Succ 25 MG TAB.ER.24H PO SCH (09:01)
[2018-03-04] MEDS ORDERED: 0.9 % Sodium Chloride 250 ML IVC ONE (09:13)
--- NOTE | 2018-03-04 09:39 | Orthopedics Progress Note ---
Date of Encounter: 03/04/18 Time of Encounter: 09:39 Subjective Interval history: Patient was seen this morning doing well without complaints. Afebrile vital signs stable. Operative extremity: Neurovascularly intact Dressing clean dry and intact Calves nontender Assessment and plan: Continue with postoperative care Objective Vital signs: Vital Signs Temp Pulse Resp BP Pulse Ox 03/04/18 07:50 16 91 03/04/18 06:52 98.9 F 110 17 128/69 93 03/04/18 04:25 99.3 F 98 20 153/71 89 03/03/18 23:58 97.9 F 97 16 165/76 90 03/03/18 22:46 16 94 03/03/18 20:20 98.8 F 91 19 166/76 90 03/03/18 20:04 94 03/03/18 18:15 98.6 F 100 16 131/75 94 03/03/18 17:10 99.4 F 106 16 191/84 94 03/03/18 16:31 98.7 F 84 16 181/81 91 03/03/18 14:45 98.2 F 101 16 165/75 94 03/03/18 14:30 98.2 F 100 16 159/71 93 03/03/18 11:45 98.6 F 73 16 147/85 97 03/03/18 10:33 14 94 Intake and Output 03/03/18 03/04/18 03/04/18 23:59 07:59 15:59 Intake Total 508 / 508 Output Total 1000 / 1000 1100 / 1100 Balance -492 / -492 -1100 / -1100 Intake: Oral 240 / 240 Blood Product 268 / 268 Rbcs Leuko Poor As-1 Unit 268 / 268 [id number] Output: Urine 1000 / 1000 1100 / 1100 Other: Meal Dinner Percent of Meal Consumed 75% # Voids 1 2 Blood Glucose* 165 - Labs CBC & BMP: 03/03/18 00:53 03/03/18 00:53 Labs: Abnormal lab results RBC 2.66 M/mcL (3.82-4.97) L 03/03/18 00:53 Hgb 8.4 g/dL (11.5-15.4) L 03/03/18 00:53 Hct 25.1 % (35.3-44.9) L 03/03/18 00:53 Sodium 133 mEq/L (136-145) L 03/03/18 00:53 Carbon Dioxide 32 mEq/L (23-29) H 03/03/18 00:53 BUN 27 mg/dL (8-23) H 03/03/18 00:53 BUN/Creatinine Ratio 44 (6-26) H 03/03/18 00:53 Glucose 134 mg/dL (70-105) H 03/03/18 00:53 POC Glucose 165 mg/dL (70-99) H 03/04/18 07:02 - VTE Documentation of Mechanical Device: Venous foot pump, device Consult Discharge Plan - Plan Referrals: Tammie Cole DO [Primary Care Provider] - Prescriptions: Levofloxacin [Levaquin] 500 mg PO DAILY #5 tablet
--- NOTE | 2018-03-04 11:04 | Internal Med Progress Note ---
Hospitalist Progress Note - Encounter Date of Encounter: 03/04/18 Time of Encounter: 08:30 - Subjective Interval History: Ms Mckeon is currently admitted for R TKA. She has been diagnosed with pneumonia. Ms Mckeon had blood yesterday and was hypertensive and tachycardic following transfusion. Discharge was held. This AM she is tachycardic again but BP has been better. - Exam Vitals: Temp Pulse Resp BP Pulse Ox 98.9 F 110 16 128/69 91 03/04/18 06:52 03/04/18 06:52 03/04/18 07:50 03/04/18 06:52 03/04/18 07:50 Exam: General: Alert and oriented. Comfortable up in chair eating breakfast. Skin: Normal color, no rash, no lesions. H: EOM, pupils equal, round and reactive. EENT: Mucus membranes dry. No lesion. Cardiovascular: Normal S1 & S2, no rubs,or gallops. No JVD. Pulse regular and slightly tachy. Lungs: Normal breath sounds, no wheezes or crackles. Abdomen: Soft, non-tender, no rigidity. Neurological: Normal cognition and motor skills. No focal deficit. Pulses: Carotid and radial pulses normal +2. - Assessment and Plan (1) Status post total right knee replacement Current Visit: Yes Status: Acute (2) Acute blood loss anemia Current Visit: Yes Status: Acute Assessment and Plan: H/H better after transfusion. (3) Pneumonia Current Visit: Yes Status: Suspected Assessment and Plan: Complete course of abx (4) Sinus tachycardia Current Visit: Yes Status: Acute Assessment and Plan: Will give 500ml of normal saline prior to discharge today. - Time Spent with Patient Total time spent is greater than 50% in coordination of care (as documented) at patient's floor/unit and/or counseling patient: Internal Medicine: Result - Labs CBC & Chem 7: 03/03/18 00:53 03/03/18 00:53 - VTE Documentation of Mechanical Device: Venous foot pump, device Consult Discharge Plan - Plan Additional Instructions: Discharge Instructions: Total Knee Replacement Please call [facility] ([phone]), your Primary Care Physician, or report to the Emergency Room if you have any of the following symptoms: Nausea, vomiting, fever greater that 101.5, swelling, chest pain, shortness of breath, increased pain/redness/drainage/odor for your incision site, numbness/ tingling, or any other concerning symptoms. ACTIVITY:Weight-bearing as tolerated. You may progress off support (crutches or walker) as tolerated. Incentive Spirometer 10 times an hour. MEDICATIONS: Upon discharge resume your home medications. Take all the medications as prescribed. Take a stool softener if taking narcotic pain medications. Stool softeners are only effective if you drink enough fluids. Drink 6-8 glass of water or fluids a day, unless this is not allowed for another health problem. Despite using stool softeners, if you haven't had a bowel movement in 3 days, please switch to a gentle laxative. Gentle laxatives are sold over the counter. You should have a bowel movement within 24 hours, if not call the office. You will be discharged from the hospital with a prescription for pain medication. You are encouraged to decrease the use of narcotic pain medication as tolerated. Should you require a refill, please call the office. [facility] prescribes narcotic pain medication for only 4-6 weeks after surgery. If you require pain medication beyond this time period, you may be referred to your Primary Care Physician or to the Pain Clinic for further evaluation. Plan ahead for refills on pain medication as many narcotics either need to be picked up at the office or mailed. It is best to call 48-72 hours in advance of needing a prescription refill so you don't run out of medication. To help control the post-operative pain, you may take NSAIDs (Aleve,Advil, Motrin, Ibuprofen, Naprosyn) or Tylenol as prescribed on the bottle in addition to the pain medication. ANTICOAGULATION (blood thinners): Continue your Aspirin, Lovenox or Coumadin as prescribed to help prevent a blood clot in the leg or in the lungs. As long as your incision remains dry and you tolerate the NSAIDs (Aleve, Advil, Motrin, ibuprofen, naprosyn), it is OK to use the NSAIDS while you are taking your anticoagulation medication. Should your incision start to drain, stop the NSAID and contact our office. Common symptoms of blood clot in the legs include: localized pain, swelling, calf tenderness, redness or discoloration of the skin. Blood clot in the lung symptoms include: shortness of breath, rapid pulse, sweating, and chest pain that worsens with deep breathing, coughing up blood, lightheadedness, feelings of anxiety. If you experience any of these symptoms notify your physician immediately, go to the emergency room, or if having trouble breathing, call 911. WOUND CARE: Leave the dressing on for 7 to 10days. You may change the dressing if it becomes saturated greater than 50%. Do not get the dressing wet at anytime. Wash your hands with antibacterial soap, rinse and dry prior to any wound care. If you have marcell the visiting nurse or rehab facility can remove the stapes 10-14 days after surgery and place steri-strips across the wound. Leave the steri-strips in place until they fall off on their won. You may let water from the shower run on top of the steri-strips. If you do not have a visiting nurse or rehab facility, you will need to return to the office at 10-14 days for the marcell to be removed. If you have itching or redness around the dressing call the office. FOLLOW-UP: Please follow up with your surgeon in the orthopedic clinic in 4 weeks from the day of surgery. If you have marcell that need to be removed, you will need to come back to the office in 10-14 days from the day of surgery. Referrals: Kori London, PAC [Physician Cushion Gum Applicator] - 03/08/18 10:15 am Tammie Cole, DO [Primary Care Provider] - Prescriptions: Levofloxacin [Levaquin] 500 mg PO DAILY #5 tablet (3) Pneumonia Qualifiers: Pneumonia type: due to Pneumococcus Laterality: right Lung location: lower lobe of lung Qualified Code(s): J13 - Pneumonia due to Streptococcus pneumoniae
[2018-03-04 12:36] VITALS: BP 163/62
--- NOTE | 2018-03-07 16:54 | Electrocardiograph Report ---
[address] [place], [place] [address] Test Date: 2018-03-02 Pat Name: [facility] Department: [facility] Room: [facility] Gender: F Patient Access Associate: : [id number] Requested By: Lino Gates Order Number: [id number] Reading MD: Geri Ross Measurements Intervals [place] Rate: 73 P: 58 CO: 191 QRS: -1 QRSD: 103 T: 66 QT: 363 QTc: 389 Interpretive Statements SINUS RHYTHM WITH SINUS ARRHYTHMIA LOW QRS VOLTAGE IN PRECORDIAL LEADS NONSPECIFIC T-WAVE ABNORMALITY Electronically Signed On 03-07-2018 16:52:08 EDT by Geri Ross
== END 2018-03-04 12:46 | DRG 469 ==
LOC: SAMDAY 09:31 → 3NENU 14:02
PROVIDERS: ADMIT Orthopaedic Surgery; ATTEND Orthopaedic Surgery

== ENCOUNTER 2019-05-06 08:38 | Observation (INO) ==
[2019-05-06] MEDS ORDERED: *HR* Succinylcholine 200 MG/10 ML VIAL IVP ONE (09:22)
[2019-05-06] MEDS ORDERED: *HR* FentaNYL (PF) 100 MCG/2 ML VIAL ONE (09:22)
[2019-05-06] MEDS ORDERED: Lidocaine -MPF 2% 2 ML VIAL ONE (09:22)
[2019-05-06] MEDS ORDERED: Ondansetron 4 MG/2 ML VIAL ONE (09:22)
[2019-05-06] MEDS ORDERED: *HR* Propofol 200 MG/20 ML VIAL IVP ONE (09:23)
[2019-05-06] MEDS ORDERED: Famotidine 20 MG/2 ML VIAL IVP ONE (09:25)
[2019-05-06] MEDS ORDERED: Acetaminophen IV 1,000 MG/100 ML INFUS..BTL IVPB ONE (09:26)
[2019-05-06] MEDS ORDERED: *HR* OxyCODONE Immed Rel 5 MG TABLET PO PRN (09:27)
[2019-05-06] MEDS ORDERED: CeFAZolin Syr 2,000MG/20 ML 2,000 MG/20 ML SYRINGE IVPB ONE (09:28)
[2019-05-06] MEDS ORDERED: *HR* HYDROmorphone 2 MG TABLET PO PRN (09:28)
[2019-05-06] MEDS ORDERED: *HR* Labetalol 20 MG/4 ML SYRINGE IVP PRN (09:28)
[2019-05-06] MEDS ORDERED: *HR* Promethazine 25 MG/ML VIAL IVP PRN (09:28)
[2019-05-06] MEDS ORDERED: *HR* HYDROmorphone (PF) 1 MG/ML SYRINGE IVP PRN (09:28)
[2019-05-06] MEDS ORDERED: Ringers Solution, Lactated 1,000 ML IVC SCH (09:30)
[2019-05-06] MEDS ORDERED: Ropivacaine/PF 0.5% 30 ML VIAL ONE (10:28)
[2019-05-06] MEDS ORDERED: Ethanol\\Acetic Acid\\Na Ace\\Ben 1,000 ML IRRIG.SOLN IR ONE (10:42)
[2019-05-06] MEDS ORDERED: Hydrocortisone Sodium Succ 100 MG/2 ML VIAL ONE (10:55)
[2019-05-06] MEDS ORDERED: EPHEDrine 50 MG/ML VIAL ONE (11:14)
[2019-05-06] MEDS ORDERED: Dexamethasone 4 MG/ML VIAL ONE (11:49)
[2019-05-06 13:04] LABS: Hematocrit 35.7 % (35.3-44.9)
[2019-05-06 13:08] LABS: Hemoglobin 11.8 g/dL (11.5-15.4)
[2019-05-06] MEDS ORDERED: traMADol 50 MG TABLET PO PRN (13:39)
[2019-05-06] MEDS ORDERED: Naloxone 0.4 MG/ML INJ IVP PRN (13:39)
[2019-05-06] MEDS ORDERED: MOM Conc 10 ML UD.LIQ PO PRN (13:39)
[2019-05-06] MEDS ORDERED: Sennosides 8.6 MG TABLET PO PRN (13:39)
[2019-05-06] MEDS ORDERED: Temazepam 15 MG CAPSULE PO PRN (13:39)
[2019-05-06] MEDS: *HR* Enoxaparin 30 MG/0.3 ML SYRINGE SQ SCH (17:59)
[2019-05-06] MEDS ORDERED: *HR* Enoxaparin 30 MG/0.3 ML SYRINGE SQ SCH (18:00)
[2019-05-06] MEDS: Cyanocobalamin (B-12) 1,000 MCG TABLET PO SCH (21:32)
[2019-05-06] MEDS: Gabapentin 300 MG CAPSULE PO SCH (21:46)
[2019-05-07] MEDS: *HR* OxyCODONE Immed Rel 5 MG TABLET PO PRN ×2 (03:06→10:19)
[2019-05-07] MEDS: Ondansetron 4 MG/2 ML VIAL IVP PRN ×2 (04:01→10:29)
[2019-05-07 05:46] LABS: Hematocrit 34.6 % (35.3-44.9); Hemoglobin 11.5 g/dL (11.5-15.4)
[2019-05-07] MEDS: *HR* Enoxaparin 30 MG/0.3 ML SYRINGE SQ SCH ×2 (05:59→17:22)
[2019-05-07 06:04] LABS: BUN/Creatinine Ratio 38 (6-26); Blood Urea Nitrogen 23 mg/dL (8-23); Calcium 9.2 mg/dL (8.6-10.3); Carbon Dioxide 31 mEq/L (23-29); Chloride 99 mEq/L (98-107); Glucose 144 mg/dL (70-105); Osmolality,Calculated 292 (280-300); Potassium 4.1 mEq/L (3.5-5.1); Sodium 138 mEq/L (136-145); eGFR For African Americans > 60 (> 60); eGFR For Non-African Americans > 60 (> 60)
[2019-05-07] MEDS: Ringers Solution, Lactated 1,000 ML IVC SCH ×2 (08:15→16:26)
[2019-05-07] MEDS: predniSONE 5 MG TABLET PO SCH (10:19)
[2019-05-07] MEDS: Multivit/Ca/Min/Fe/FA 1 TAB TABLET PO SCH (10:19)
[2019-05-07] MEDS: Cholecalciferol (D-3) 1,000 UNIT (25MCG) TABLET PO SCH (10:19)
[2019-05-07] MEDS: Metoprolol XL (24 HR) Succ 50 MG TAB.ER.24H PO SCH (10:23)
[2019-05-07] MEDS: *HR* OxyCODONE/APAP 5/325 TABLET PO PRN (17:22)
[2019-05-07] MEDS: Gabapentin 300 MG CAPSULE PO SCH (20:06)
[2019-05-07] MEDS ORDERED: Ketorolac 15 MG/ML VIAL IVP PRN (20:08)
[2019-05-08] MEDS: *HR* OxyCODONE/APAP 5/325 TABLET PO PRN (02:15)
[2019-05-08 02:45] LABS: Hemoglobin 12.2 g/dL (11.5-15.4)
[2019-05-08 03:01] LABS: BUN/Creatinine Ratio 33 (6-26); Blood Urea Nitrogen 17 mg/dL (8-23); Calcium 9.3 mg/dL (8.6-10.3); Carbon Dioxide 34 mEq/L (23-29); Chloride 95 mEq/L (98-107); Glucose 143 mg/dL (70-105); Osmolality,Calculated 284 (280-300); Potassium 4.1 mEq/L (3.5-5.1); Sodium 135 mEq/L (136-145); eGFR For African Americans > 60 (> 60); eGFR For Non-African Americans > 60 (> 60)
[2019-05-08] MEDS: *HR* Enoxaparin 30 MG/0.3 ML SYRINGE SQ SCH (05:51)
[2019-05-08] MEDS ORDERED: Acetaminophen IV 500 MG/50 ML INFUS..BTL IVPB ONE (08:49)
[2019-05-08] MEDS: Multivit/Ca/Min/Fe/FA 1 TAB TABLET PO SCH (10:34)
[2019-05-08] MEDS: Cholecalciferol (D-3) 1,000 UNIT (25MCG) TABLET PO SCH (10:34)
[2019-05-08] MEDS: Metoprolol XL (24 HR) Succ 50 MG TAB.ER.24H PO SCH (10:34)
[2019-05-08] MEDS: predniSONE 5 MG TABLET PO SCH (10:35)
[2019-05-08] MEDS: Cyanocobalamin (B-12) 1,000 MCG TABLET PO SCH (13:39)
[2019-05-08] MEDS: Ringers Solution, Lactated 1,000 ML IVC SCH (13:44)
[2019-05-08] MEDS: *HR* OxyCODONE Immed Rel 5 MG TABLET PO PRN ×2 (16:36→18:28)
[2019-05-08 17:31] VITALS: BP 152/73
[2019-05-08] MEDS ORDERED: *HR* OxyCODONE Immed Rel 5 MG TABLET PO ONE (18:13)
== END 2019-05-08 18:52 | DRG 483 ==
LOC: SAMDAY 08:38 → 3NENU 13:10 → INTOOBSV 13:10
PROVIDERS: ADMIT Orthopaedic Surgery; ATTEND Orthopaedic Surgery